=== PATIENT | male | born 1995 | race Two or more races ===

== ENCOUNTER 2018-05-18 12:14 | Emergency (ER) | payer OTHER ==
[~2018-05-18] VITALS: Ht 175.3 cm; Wt 81.6 kg
[2018-05-18 12:23] VITALS: BP 130/82
[2018-05-18] MEDS ORDERED: PRED20TA PO (12:32)
[2018-05-18] MEDS ORDERED: DEXT118L3 PO (12:32)
--- NOTE | 2018-05-18 12:33 | PHYS DOC ---
Past History Past Medical History: No Pertinent History Past Surgical History: No Surgical History Smoking: Non-smoker Alcohol Use: None Drug Use: None Adult General Chief Complaint Chief Complaint: COUGH HPI HPI 22-year-old male presents with report of 5 day history of productive cough and nasal congestion. Patient reports productive cough with yellow sputum. Denies fever or chills. Reports some sore throat. Patient reports positive sick contact in his young daughter. Reports she had been previously diagnosed with RSV. Review of Systems Review of Systems Constitutional: Denies fever or chills [] Eyes: Denies change in visual acuity, redness, or eye pain [] HENT: Reports nasal congestion and sore throat [] Respiratory: Reports productive cough; denies shortness of breath [] Cardiovascular: Denies chest pain or palpitations GI: Denies nausea, vomiting, or diarrhea [] Musculoskeletal: Denies back pain or joint pain [] Integument: Denies rash or skin lesions [] Neurologic: Denies headache or sensory changes [] Complete systems were reviewed and found to be within normal limits, except as documented in this note. Allergies Allergies Allergies Coded Allergies Type Severity Reaction Last Updated Verified No Known Drug Allergies 05/18/18 No Physical Exam Physical Exam Constitutional: Well developed, well nourished, no acute distress, non-toxic appearance. [] HENT: Normocephalic, atraumatic, bilateral TMs normal, oropharynx moist, no tonsillar erythema or exudates, nose with enlarged turbinates and bilateral congestion Eyes: PERRL, EOMI, conjunctiva normal, no discharge. [] Neck: Normal range of motion, no tenderness, supple, no meningeal signs Cardiovascular: Heart rate regular rhythm, no murmur [] Lungs & Thorax: Bilateral breath sounds clear to auscultation [] Abdomen: Soft, no tenderness Skin: Warm, dry, no erythema, no rash. [] Extremities: No tenderness, ROM intact, no edema. [] Neurologic: Alert and oriented X 3, no focal deficits noted. [] Psychologic: Affect normal, judgement normal, mood normal. [] Current Patient Data Vital Signs Vital Signs Date Time Temp Pulse Resp B/P (MAP) Pulse Ox O2 Delivery O2 Flow Rate FiO2 05/18/18 12:23 99.2 98 16 98 Room Air EKG EKG [] Radiology/Procedures Radiology/Procedures [] Course & Med Decision Making Course & Med Decision Making Patient presents with history of present illness and physical exam consistent for acute URI. Vital signs stable. Patient is afebrile. Symptomatic treatment provided with oral steroid.Patient stable for discharge with outpatient follow- up with PCP. Discussed findings and plan with patient, who acknowledges understanding and agreement. Dragon Disclaimer Dragon Disclaimer This electronic medical record was generated, in whole or in part, using a voice recognition dictation system. Departure Departure: Impression: Primary Impression: Acute URI Disposition: HOME, SELF-CARE Condition: STABLE Referrals: ITA GUADARRAMA PA-C (PCP) Patient Instructions: Upper Respiratory Infection, Adult, [id number] Scripts Dextromethorphan Hbr/Chlor-Mal (ROBITUSSIN LONG-ACTING LIQ) 118 Ml Liquid 10 ML PO BID PRN for COUGH, #120 LIQUID Prov: ARIANA BARRY DO 05/18/18 Prednisone (PREDNISONE) 20 Mg Tablet 2 TAB PO DAILY for URI, #8 TAB Next dose will be tommorrow, 05/19/18 Prov: ARIANA BARRY DO 05/18/18 ARIANA BARRY DO May 18, 2018 12:33
[2018-05-18] MEDS ORDERED: DEXAMETHASONE 4 MG TABLET PO ONE (12:45)
== END 2018-05-18 12:40 | disposition home or self-care (01) ==
LOC: ER 12:14 → EDBD 12:14 → ER 12:40
DX: J06.9 Acute upper respiratory infection, unspecified (principal)
CPT/HCPCS: 99283; J8540

== ENCOUNTER 2018-06-07 07:43 | Emergency (ER) | payer OTHER ==
[~2018-06-07] VITALS: Ht 170.2 cm; Wt 71.2 kg
[2018-06-07 07:43] VITALS: BP 105/76
[~2018-06-07 07:43] MED LIST: DEXT118L3 PO; PRED20TA PO
[2018-06-07] MEDS ORDERED: HYDR115S2 PO (08:06)
[2018-06-07] MEDS ORDERED: AMOX1TAB61 PO (08:06)
[2018-06-07] MEDS ORDERED: ALBU2.5V8 INH (08:06)
--- NOTE | 2018-06-07 08:06 | PHYS DOC ---
Past History Past Medical History: No Pertinent History Past Surgical History: No Surgical History Smoking: Non-smoker Alcohol Use: None Drug Use: None Adult General Chief Complaint Chief Complaint: COUGH HPI HPI Patient is a 22 year old male who presents with complaining of cough for more than 2 weeks. Patient states he had nonproductive and productive cough for 3 weeks with intermittent episodes of chest and throat soreness during episodes of cough. Patient obtaining of headache and generalized weakness without fever. Patient states he was seen in this emergency room and by his primary care physician and did not have antibiotic and his condition great gradually getting worse. Review of Systems Review of Systems Constitutional: Denies fever or chills [] Eyes: Denies change in visual acuity, redness, or eye pain [] HENT: Reports Nasal congestion or sore throat Respiratory: Reports cough and shortness of breath Cardiovascular: No additional information not addressed in HPI [] GI: Denies abdominal pain, nausea, vomiting, bloody stools or diarrhea [] : Denies dysuria or hematuria [] Musculoskeletal: Denies back pain or joint pain [] Integument: Denies rash or skin lesions [] Neurologic: Denies headache, focal weakness or sensory changes [] Endocrine: Denies polyuria or polydipsia [] All other systems were reviewed and found to be within normal limits, except as documented in this note. Allergies Allergies Allergies Coded Allergies Type Severity Reaction Last Updated Verified No Known Drug Allergies 05/18/18 No Physical Exam Physical Exam Constitutional: Well developed, well nourished, milde distress, non-toxic appearance. [] HENT: Normocephalic, atraumatic, bilateral external ears normal, oropharynx moist, no oral exudates, nose normal. [] Eyes: PERRLA, EOMI, conjunctiva normal, no discharge. [] Neck: Normal range of motion, no tenderness, supple, no stridor. [] Cardiovascular:Heart rate regular rhythm, no murmur [] Lungs & Thorax: Bilateral breath sounds clear to auscultation [] Abdomen: Bowel sounds normal, soft, no tenderness, no masses, no pulsatile masses. [] Skin: Warm, dry, no erythema, no rash. [] Back: No tenderness, no CVA tenderness. [] Extremities: No tenderness, no cyanosis, no clubbing, ROM intact, no edema. [] Neurologic: Alert and oriented X 3, normal motor function, normal sensory function, no focal deficits noted. [] Psychologic: Affect normal, judgement normal, mood normal. [] EKG EKG [] Radiology/Procedures Radiology/Procedures [] Course & Med Decision Making Course & Med Decision Making discharge: I've spoken with the patient and/or caregivers. I've explained the patient's condition, diagnosis and treatment plan based on information available to me at this time. I've answered the patient's and/or caregivers questions and addressed any concerns. The patient and/or caregivers have a good understanding the patient's diagnosis, condition and treatment plan as can be expected at this point. Vital signs have been stabilized. The patient's condition is stable for discharge from the emergency department. The patient will pursue further outpatient evaluation with her primary care provider or other designated consulting physician as outlined in the discharge instructions. Patient and/or caregivers are agreeable to this plan of care and follow-up instructions have been explained in detail. The patient and/or caregivers have received these instructions in written format and expressed understanding of these discharge instructions. The patient and her caregivers are aware that if any significant change in condition or worsening of symptoms should prompt him to immediately return to this of the closest emergency department. If an emergent department is not readily available I would encourage him to call 911. Dragon Disclaimer Dragon Disclaimer This electronic medical record was generated, in whole or in part, using a voice recognition dictation system. Departure Departure: Impression: Primary Impression: Acute bronchitis Disposition: HOME, SELF-CARE (at 0801) Condition: STABLE Referrals: ITA GUADARRAMA PA-C (PCP) Patient Instructions: Acute Bronchitis Additional Instructions: Drink plenty of liquids Follow-up with your primary care physician in 3-5 days Return to ER if not getting better Scripts Hydrocodone/Chlorphen P-Stirex (Tussionex Pennkinetic Susp) 115 Ml Angie.er.12h 5 ML PO BID for cough and congestion, #60 ML Prov: FLAVIA RIVAS MD 06/07/18 Albuterol Sulfate (PROAIR HFA INHALER) 8.5 Gm Hfa.aer.ad 2 PUFF INH PRN Q6HRS PRN for SHORTNESS OF BREATH, #1 INHALER 0 Refills Prov: FLAVIA RIVAS MD 06/07/18 Amoxicillin/Potassium Clav (AUGMENTIN 875-125 TABLET) 1 Each Tablet 1 TAB PO BID for infection, #14 TAB Prov: FLAVIA RIVAS MD 06/07/18 FLAVIA RIVAS MD Jun 07, 2018 08:06
== END 2018-06-07 08:14 | disposition home or self-care (01) ==
LOC: ER 07:43
DX: J20.9 Acute bronchitis, unspecified (principal); R53.1 Weakness
CPT/HCPCS: 99283

== ENCOUNTER 2018-06-21 21:12 | Emergency (ER) | payer OTHER ==
[~2018-06-21] VITALS: Ht 170.2 cm; Wt 70.6 kg
[~2018-06-21 21:12] MED LIST changes: +ALBU2.5V8 INH; +AMOX1TAB61 PO; +HYDR115S2 PO
[2018-06-21] MEDS ORDERED: DEXAMETHASONE 4 MG TABLET PO ONE (21:30)
[2018-06-21] MEDS ORDERED: DEXAMETHASONE SOD PHOS 10 MG/ML VIAL IV ONE (21:30)
--- NOTE | 2018-06-21 21:49 | RAD ---
PA and lateral chest. HISTORY: Cough, congestion PA and lateral views were taken of the chest. Lungs are free of infiltrates. Heart is normal in size. There is no effusion. IMPRESSION: 1. No acute chest disease. Electronically signed by: Toni Collins MD (06/21/2018 9:44 PM) [facility]
[2018-06-21 21:55] LABS: MONONUCLEOSIS PATIENT NEGATIVE (NEGATIVE)
[2018-06-21] MEDS ORDERED: PRED20TA PO (22:07)
[2018-06-21] MEDS ORDERED: BENZ100C PO (22:07)
--- NOTE | 2018-06-21 22:07 | PHYS DOC ---
Past History Past Medical History: No Pertinent History Past Surgical History: Other Smoking: Non-smoker Alcohol Use: None Drug Use: None Adult General Chief Complaint Chief Complaint: COUGH HPI HPI Patient is an otherwise healthy 22 year old male who presents with a two month history of cough, sore throat, nasal congestion, and post nasal drip. Also reports intermittent nausea and vomiting. He says the symptoms gradually got worse and haven't subsided. He sought medical care several times and was given a steroid nasal spray and Renetta which did not offer any relief. He also took three days of an antibiotic, of which he does not remember. He reports improvement with the antibiotic, but symptoms returned 2-3 days after finishing the medication. He has never had symptoms that lingered for this long in the past. No recent travel. Has been around many people with similar complaints, but says they all got better after a week or so. He denies shortness of breath, chest pain, abdominal pain, hemoptysis, hematochezia, fevers, chills, or significant weight loss. He has no history of strep throat. Review of Systems Review of Systems Constitutional: Denies fever or chills [] Eyes: Denies change in visual acuity, redness, or eye pain [] HENT: Reports nasal congestion and sore throat Respiratory: Reports cough, denies shortness of breath GI: Reports intermittent nausea and vomiting : Denies dysuria or hematuria [] Musculoskeletal: Denies back pain or joint pain [] Integument: Denies rash or skin lesions [] Neurologic: Denies headache, focal weakness or sensory changes [] Complete systems were reviewed and found to be within normal limits, except as documented in this note. Current Medications Current Medications Current Medications Medications (Trade) Dose Ordered Sig/Qian Start Time Stop Time Status Last Admin Dose Admin Dexamethasone (Decadron) 10 mg 1X ONCE 06/21/18 21:30 06/21/18 21:31 DC 06/21/18 21:37 10 MG Dexamethasone Sodium Phosphate (Decadron) 10 mg 1X ONCE 06/21/18 21:30 06/21/18 21:30 DC Allergies Allergies Allergies Coded Allergies Type Severity Reaction Last Updated Verified No Known Drug Allergies 06/21/18 No Physical Exam Physical Exam Constitutional: Well developed, well nourished, no acute distress, non-toxic appearance. [] HENT: Normocephalic, atraumatic, bilateral TMs normal, post nasal drip, minimal sinus tenderness, no tonsillar swelling or exudate, mild pharyngeal erythema Eyes: PERRL, EOMI, conjunctiva normal, no discharge. [] Neck: Normal range of motion, no tenderness, no LAD Cardiovascular: Heart rate regular rhythm, no murmur [] Lungs & Thorax: Bilateral breath sounds clear to auscultation [] Abdomen: no tenderness, soft, no distention [] Skin: Warm, dry, no erythema, no rash. [] Extremities: No tenderness,ROM intact, no edema. [] Neurologic: Alert and oriented X 3, normal motor function, normal sensory function, no focal deficits noted. [] Psychologic: Affect normal, judgement normal, mood normal. [] Current Patient Data Vital Signs Vital Signs Date Time Temp Pulse Resp B/P (MAP) Pulse Ox O2 Delivery O2 Flow Rate FiO2 06/21/18 21:12 99.1 98 18 98 Room Air Lab Results Laboratory Tests Test 06/21/18 21:20 Heterophil Agglutinins Negative (NEGATIVE) Group A Streptococcus Rapid Negative (NEGATIVE) EKG EKG [] Radiology/Procedures Radiology/Procedures PROCEDURE: CHEST PA & LATERAL PA and lateral chest. HISTORY: Cough, congestion PA and lateral views were taken of the chest. Lungs are free of infiltrates. Heart is normal in size. There is no effusion. IMPRESSION: 1. No acute chest disease. Electronically signed by: Toni Collins MD (06/21/2018 9:44 PM) [facility] Course & Med Decision Making Course & Med Decision Making Pertinent Labs and Imaging studies reviewed. (See chart for details) Patient is an otherwise healthy young male who presents with two month history of sore throat, cough, post nasal drip, and nasal congestion. Patient is afebrile. Rapid strep and mono testing were negative. His physical exam was positive for post nasal drip and nasal congestion but otherwise normal. Lungs clear on imaging. Allergies may be a contributing factor and expressed he may want to continue steroid nasal spray. Given duration of his symptoms patient provided with a steroid burst. Additionally he was given a prescription for an antibiotic to start if there is no improvement over next several days (Watch and wait). Patient stable for discharge with outpatient follow-up with PCP. Discussed findings and plan with patient, who acknowledges understanding and agreement. Dragon Disclaimer Dragon Disclaimer This electronic medical record was generated, in whole or in part, using a voice recognition dictation system. Departure Departure: Impression: Primary Impression: Upper respiratory infection Disposition: HOME, SELF-CARE Condition: STABLE Referrals: ITA GUADARRAMA PA-C (PCP) Patient Instructions: Upper Respiratory Infection, Adult, [id number] Additional Instructions: Hold antibiotics for 48 hours. If symptoms worsen or for fever > 100.3 F after 48 hours then start antibiotics as prescribed. Scripts Amoxicillin/Potassium Clav (AUGMENTIN 875-125 TABLET) 1 Each Tablet 1 TAB PO BID for sinus infection, #20 TAB Prov: ARIANA BARRY DO 06/21/18 Benzonatate (TESSALON PERLE) 100 Mg Capsule 1 CAP PO TID PRN for COUGH, #21 CAP Prov: ARIANA BARRY DO 06/21/18 Prednisone (PREDNISONE) 20 Mg Tablet 2 TAB PO DAILY for URI, #8 TAB Please start this medication tomorrow, Monday06/21/09 Prov: ARIANA BARRY DO 06/21/18 Problem Qualifiers Primary Impression: Upper respiratory infection URI type: unspecified URI Qualified Codes: J06.9 - Acute upper respiratory infection, unspecified ARIANA BARRY DO Jun 21, 2018 22:07
[2018-06-21] MEDS ORDERED: AMOX1TAB61 PO (22:17)
[2018-06-21 22:23] VITALS: BP 118/76
== END 2018-06-21 22:20 | disposition home or self-care (01) ==
LOC: ER 21:12
DX: J06.9 Acute upper respiratory infection, unspecified (principal); R11.2 Nausea with vomiting, unspecified
CPT/HCPCS: 71046; 86308; 87070; 87880; 99284; J8540